=== PATIENT | female | born 1995 | race Caucasian/White ===

== ENCOUNTER 2016-09-27 20:32 | Emergency (ER) | payer OTHER | END 2016-09-27 22:58 | disposition home or self-care (01) | LOC: CFTX 20:32 → CED 20:32 → CFTX 22:06 → CED 22:06 → CFTX 22:58 | DX: L02.416 Cutaneous abscess of left lower limb (principal); L03.116 Cellulitis of left lower limb; F17.210 Nicotine dependence, cigarettes, uncomplicated; Z88.0 Allergy status to penicillin | CPT/HCPCS: 10060; 87070; 87077; 87186; 87205; 99282 ==